=== PATIENT | male | born 1975 | race Caucasian/White ===

== ENCOUNTER 2018-12-05 09:37 | Day surgery (SDC) | payer MEDICAID, SELFPAY ==
[2018-12-05 10:00] VITALS: BP 136/86; PULSE 92; RESP 18; TEMP 36.5; O2SAT 97
[2018-12-05] MEDS: Lactated Ringers 1,000 ML 80 ML IV (10:55)
[2018-12-05] MEDS: ceFAZolin 2 GM/50 ML BAG IVPB (11:52)
[2018-12-05] MEDS: Lidocaine 1% Pres-Free 5 ML VIAL (12:09)
[2018-12-05] MEDS: Sodium Bicarbonate 50 MEQ/50 ML VIAL (12:09)
[2018-12-05] MEDS: Bupivacaine 0.5% Pres-Free 30 ML VIAL (12:21)
--- NOTE | 2018-12-05 12:40 | W.PM.DSUDISC ---
Discharge Plan Disposition Patient Disposition: HOME Condition: Good Discharge Details Reason For Visit: Left Carpal Tunnel Syndrome Attending Provider: Brian Pool Primary Care Provider: Tenzin Torres Home Meds and New Rx's Prescriptions: New hydrocodone-acetaminophen 5-325 mg tablet 1 tab PO Q4H PRN (Reason: pain) Qty: 12 RF: 0 acetaminophen 500 mg tablet 500 mg PO Q6H PRN PRN (Reason: pain) Qty: 60 RF: 3 Continued methadone 10 MG tablet 4 mg DAILY RF: 0 olanzapine 10 mg Tablet 10 mg PO DAILY RF: 0 topiramate 200 mg Tablet 200 mg PO DAILY RF: 0 omega 8-csk-vde-fish oil [Fish Oil] 1,000 mg (120 mg-180 mg) Capsule 1 cap PO DAILY RF: 0 levomefolate calcium 15 mg Capsule 15 mg PO DAILY RF: 0 [place] tablet 3 mg PO DAILY RF: 0 meloxicam 7.5 mg tablet 7.5 mg PO BID Qty: 60 RF: 0 gabapentin 300 mg capsule 300 mg PO QHS Qty: 30 RF: 0 Discharge Instructions Additional Instructions: Activity: Keep the hand elevated for the first 2-3 days. You may use your fingers for light activity. You should limit any excessive motion or forceful gripping until the sutures have been removed. You should wear the brace for comfort and support but remove as desired. Dressings: You should keep the initial surgical dressing in place for at least 3 days. You may remove your dressings and get the wound wet after 3 days. Youshould keep it covered with light gauze or large bandaid. You should keep the dressings and the wound clean at all times. As an potion, you may keep the initial dressing in place until your follow-up but keep the wound covered with light gauze until the sutures are removed. Medications: - You should take Tylenol and Ibuprofen around the clock as prescribed or per engineering scientist's recommendations. - You have Hydrocodone prescribed for breakthrough pain control. Take only as needed and limit use as much as possible. This may cause constipation. Follow-up: 7-10 days for wound check and suture removal. Referrals: Brian Pool MD [ [facility] STAFF PHYSICIAN] - Equipment/Supplies: Brace Activity:: Elevate Remove Dressings/Wound Care:: 72 hours Shower/Bathe:: 72 hours Diet:: As Tolerated Discharge Orders Discharge Orders: Discharge Order (Routine); Ordered 12/05/18 Ordered By: Brian Pool DS: Diagnosis Discharge Diagnosis (1) Carpal tunnel syndrome of left wrist: Status: Chronic
[2018-12-05 13:05] VITALS: BP 120/82; PULSE 80; RESP 18; TEMP 36.7; O2SAT 97
--- NOTE | 2018-12-05 20:39 | W.PM.OP ---
Date of service: 12/05/18 Time of Service: 13:39 Operative Note DATE OF PROCEDURE: 12/05/18 PRE-OP DIAGNOSIS: Left carpal tunnel syndrome POST-OP DIAGNOSIS: same PROCEDURE: Open left carpal tunnel release SURGEON: Brian Pool ANESTHESIA: MAC ESTIMATED BLOOD LOSS: 10 PATHOLOGY: none sent TOURNIQUET TIME: 0 COMPLICATIONS: None Patient was transported to: same day Patient's condition: stable Indications: I have seen Rolf in clinic for symptoms of a carpal tunnel syndrome. His symptoms were quite atypical but he had nerve conduction studies which confirm the diagnosis. He had tried bracing and other conservative options but had notable weakness and stiffness, pain and numbness. After failing conservative options, he elected to proceed with operative intervention. I reviewed the risks of the procedure to include, but not limited to, bleeding, infection, pain, stiffness, incomplete release, damage to nerves or vessels, continued symptoms, recurrence. Despite these risks, the patient elected to proceed. Findings: His hand was quite thick and took some effort to get down to the transverse carpal ligament with a very significant amount of overlying muscle. The carpal tunnel was tight and was released. No abnormality seen with the underlying tendons nor nerve. Procedure Description: Rolf was greeted in the preoperative holding area where the correct side was identified and marked. The consent was reviewed with the patient and signed. All questions were answered. Rolf was taken back to the operating room. The patient was placed into the supine position on the operating room table with the left arm on an arm board. All bony prominences were well padded. No prophylactic antibiotics were administered since this was a clean, elective hand surgical case. The left arm was then prepped with Chloraprep and draped in a standard fashion with stockinette and extremity drape. A timeout to confirm correct identity, side and site, procedure, allergies, anesthesia, and medical concerns was performed. A MAC anesthetic was administered keeping the patient awake and responsive at all times. The surgical site was marked as a longitudinal incision in line with the radial border of the fourth ray corresponding to the natural longitudinal crease within his hand. This area was then anesthetized with 1% Lidocaine. The patient tolerated this well and once the anesthetic had setup, the procedure began. A longitudinal incision was made through skin only, approximately 3cm. The deep tissues were dissected bluntly. There is notable depth of his palm to get down to the transverse carpal ligament. There is abundant amount of muscle in this area which had to be cleared to visualize the transverse carpal ligament. Once was visualized it was incised. It was significantly thickened and tight. A [place] was then slid underneath the transverse carpal ligament release distally and then proximally. Any area of constriction was released. This was extended distally and proximally as needed. There is no notable defect with the underlying nerves or tendons. No significant synovitis. The wound was then irrigated and the skin was closed with a 4-0 Nylon. This was dressed with gauze and a Conform dressing and an Sajan wrap. A universal brace was applied. The patient tolerated the procedure well and was returned to the Same Day Surgery area in a stable condition suffering no known complication.
== END 2018-12-05 13:23 | disposition home or self-care (01) ==
PROVIDERS: PCP Internal Medicine; Visit Provider Student in an Organized Health Care Education/Training Program
PROC: (CPT 64721; principal; 2018-12-05 12:00)
DX: G56.02 Carpal tunnel syndrome, left upper limb (principal)
CPT/HCPCS: 64721; J0690; J2250; J3010; L3650; L3908

== ENCOUNTER 2019-02-21 08:22 | Day surgery (SDC) | payer MEDICAID, SELFPAY ==
--- NOTE | 2019-02-21 07:27 | PDOC.DSDIS_ITS ---
Discharge Plan Disposition Patient Disposition: HOME Condition: Good Discharge Details Reason For Visit: (R) ECTR Attending Provider: Brian Pool Primary Care Provider: Tenzin Torres Home Meds and New Rx's Prescriptions: New hydrocodone-acetaminophen 5-325 mg tablet 1 tab PO Q4H PRN (Reason: severe pain) Qty: 12 RF: 0 acetaminophen 500 mg tablet 500 mg PO Q6H PRN (Reason: pain) Qty: 60 RF: 3 Continued gabapentin 300 mg capsule See Rx Instructions PO .COMPLEX Qty: 120 RF: 0 diazepam 10 mg tablet 10 mg PO QHS PRN (Reason: sleep) Qty: 20 RF: 0 olanzapine 10 mg Tablet 10 mg PO DAILY RF: 0 topiramate 200 mg Tablet 200 mg PO DAILY RF: 0 omega 4-brj-trl-fish oil [Fish Oil] 1,000 mg (120 mg-180 mg) Capsule 1 cap PO DAILY RF: 0 levomefolate calcium 15 mg Capsule 15 mg PO DAILY RF: 0 [place] tablet 3 mg PO DAILY RF: 0 acetaminophen 500 mg tablet 500 mg PO Q6H PRN PRN (Reason: pain) Qty: 60 RF: 3 meloxicam 7.5 mg tablet 7.5 mg PO BID Qty: 60 RF: 0 Discharge Instructions Stand Alone Forms: Yrn Lucas Tunnel Release Referrals: Brian Pool MD [ [facility] STAFF PHYSICIAN] - Activity:: Elevate Remove Dressings/Wound Care:: 72 hours Shower/Bathe:: 72 hours Diet:: As Tolerated Discharge Orders Discharge Orders: Discharge Order (Routine); Ordered 02/21/19 Ordered By: Pura Aguirre DS: Diagnosis Discharge Diagnosis (1) Carpal tunnel syndrome of right wrist: Status: Acute
[2019-02-21 08:44] VITALS: BP 125/89; PULSE 98; RESP 16; TEMP 36.6; O2SAT 96
[2019-02-21] MEDS: Lactated Ringers 1,000 ML 80 ML IV (09:06)
[2019-02-21] MEDS: ceFAZolin 3,000 MG in Normal Saline 100 ML 200 MG IVPB (10:05)
[2019-02-21] MEDS: Lidocaine 1% Pres-Free 5 ML VIAL (10:16)
[2019-02-21] MEDS: Sodium Bicarbonate 50 MEQ/50 ML VIAL (10:16)
[2019-02-21 11:02] VITALS: BP 111/78; PULSE 77; RESP 20; TEMP 36.4; O2SAT 97
--- NOTE | 2019-02-21 15:01 | W.PM.OP ---
Date of service: 02/21/19 Time of Service: 12:01 Operative Note Operative Note DATE OF PROCEDURE: 02/21/19 PRE-OP DIAGNOSIS: Right carpal tunnel syndrome POST-OP DIAGNOSIS: same PROCEDURE: Right Endoscopic Carpal Tunnel Release SURGEON: Brian Pool ANESTHESIA: GETStefanie ESTIMATED BLOOD LOSS: 0 PATHOLOGY: none sent TOURNIQUET TIME: 8 COMPLICATIONS: None Patient was transported to: same day Patient's condition: stable Indications: I have seen Rolf in clinic for symptoms of carpal tunnel syndrome. The numbness, tingling, and pain limited function. Clinical exam findings [with nerve conduction tests ]confirmed the diagnosis of carpal tunnel syndrome. Nonoperative measures such as bracing, time, activity modifications had been tried but disability and pain persisted. I discussed carpal tunnel release with the patient. I reviewed the risks of the procedure to include, but not limited to, bleeding, infection, pain, stiffness, incomplete release, damage to nerves or vessels, persistent numbness, recurrence. Despite these risks, the patient elected to proceed. Findings: There was tightened carpal tunnel. This was dilated and released successfully with the endoscopic with increased space within the tunnel. The antebrachial fascia was released proximally freeing the median nerve at the wrist. Procedure Description: Rolf was greeted in the preoperative holding area where the correct side was identified and marked. The consent was reviewed with the patient and signed. The history and physical was updated. All questions were answered. He was taken back to the operating room. The patient was placed into the supine position on the operating room table with the right arm on an arm board. A nonsterile tourniquet was placed high onto the arm. All bony prominences were well padded. Prophylactic antibiotics in the form of [Cefazolin] were administered. The right arm was then prepped with Chloraprep and draped in a standard fashion with stockinette and extremity drape. A timeout to confirm correct identity, side and site, procedure, allergies, anesthesia, and medical concerns was performed. The surgical site was marked in the volar wrist creases in line with the radial border of the fourth ray. This area was anesthetized with approximately 6cc of 1% Lidocaine with epinephrine buffered with sodium bicarb and. The limb was then exsanguinated with an Esmarch. The skin was incised with a 15 blade, approximately 1cm. The skin only was cut and the deeper tissue was dissected bluntly with a tenotomy scissor, avoiding passing nerve and venous structures. The fascia was penetrated and opened bluntly. A two-prong skin hook was placed under this proximal fascial edge. A series of hamate finders were used to identify and dilate the carpal tunnel. Synovial elevator was used to free synovial attachments to the underside of the transverse carpal ligament. My thumb was kept in the palm to shanice the distal extent of the carpal tunnel and correctly position the hand. The Microaire endoscope was inserted without difficulty and without resistance. Excellent visualization showed horizontally running fibers of the transverse carpal ligament (TCL). The distal extent of the TCL was visualized and the end of the scope palpated with the thumb. The blade was elevated and withdrawn from distal to proximal. The TCL was split into two flaps. The endoscope was reinserted to confirm complete release and any remnant ligament was incised. The scope was withdrawn and the proximal aspect of the carpal tunnel was grossly inspected and appeared release with the median nerve visible. The antebrachial fascia at the level of the wrist was then freed from the overlying skin and then the underlying median nerve with blunt dissection. This was transected longitudinally for about 3cm proximal to the wrist incision. The wound was then irrigated with easy flow of irrigant distally and proximally. The incision was closed with a single 4-0 Nylon suture. The wound was dressed with Xeroform, Gauze, Kerlix and Sajan. The tourniquet was deflated with the initial dressing and held with some pressure. Blood flow returned easily to all digits with capillary refill less than 2 seconds. The patient tolerated the procedure well and was returned to the Same Day Surgery area in a stable condition suffering no known complication.
== END 2019-02-21 11:16 | disposition home or self-care (01) ==
LOC: SUR 08:23
PROVIDERS: PCP Internal Medicine; Visit Provider Student in an Organized Health Care Education/Training Program
PROC: 01N54ZZ Release Median Nerve, Percutaneous Endoscopic Approach (ICD-10-PCS; CPT 29848; principal; 2019-02-21 10:00)
DX: G56.01 Carpal tunnel syndrome, right upper limb (principal)
CPT/HCPCS: 29848; J0690; J2250; J3010; L3650

== ENCOUNTER 2019-03-19 15:33 | Outpatient (CLI) | payer MEDICAID, SELFPAY ==
[2019-03-19 16:19] LABS: HCT 44.6 % (40.0-50.0); HGB 15.7 g/dL (13.5-17.5); Mean Corp. HGB Concentration 35.2 g/dL (32.0-36.0); Mean Corpuscular Hemoglobin 31.6 pg (27.0-33.0); Mean Corpuscular Volume 89.7 fL (80-95); Mean Platelet Volume 9.5 fL (8.0-11.0); Platelet Count 222 x1000/uL (130-400); RBC 4.97 m/cumm (4.50-6.00); RBC Distribution Width 12.3 % (11.8-14.1); White Blood Cell Count 9.04 k/cumm (4.4-10.8)
[2019-03-19 17:02] LABS: Anion Gap 13.1 mmol/L (3-11); BUN 10 mg/dL (7-18); CO2 22.9 mmol/L (21.0-32.0); CREATININE 1.06 mg/dL (0.70-1.30); Calcium 8.8 mg/dL (8.5-10.1); Chloride 105 mmol/L (98-107); Glucose 85 mg/dL (70-100); Potassium 3.8 mmol/L (3.5-5.1); Sodium 141 mmol/L (136-145)
[2019-03-19 17:08] LABS: ESR 9 mm/hr (0-15)
== END 2019-03-19 15:53 ==
PROVIDERS: PCP Internal Medicine; Visit Provider Student in an Organized Health Care Education/Training Program
DX: G56.01 Carpal tunnel syndrome, right upper limb (principal)
CPT/HCPCS: 80048; 85027; 85652; 86140

== ENCOUNTER 2021-07-30 02:20 | Outpatient (CLI) | payer OTHER, SELFPAY ==
--- NOTE | 2021-07-30 | DI.RAD_ITS ---
Exam(s) XR LUMBAR SPINE AP, LAT EXAM: XR LUMBAR SPINE AP, LAT CLINICAL HISTORY: N. TECHNIQUE: 2D digital imaging was performed. COMPARISON: No exams were available for comparison FINDINGS: Moderate narrowing of the L3-4 and L4- L5 disc spaces. Endplate osteophytes are seen at these levels as well as L5-S1. Facet degenerative changes are noted at L4-5 and L5-S1. No spondylolysis or spon dylolisthesis. Mild levoscoliosis. Large quantity of stool incidentally noted. IMPRESSION: Degenerative changes greatest at L 3 4 and L4-5 DATA REPOSITORY: RADIATION DOSE DELIVERED:
== END 2021-07-30 02:40 ==
PROVIDERS: PCP Internal Medicine; Visit Provider Pediatrics Pediatric Rheumatology
DX: Z02.71 Encounter for disability determination (principal); M47.816 Spondylosis without myelopathy or radiculopathy, lumbar region; M41.9 Scoliosis, unspecified; M48.061 Spinal stenosis, lumbar region without neurogenic claudication
CPT/HCPCS: 72100